=== PATIENT | male | born 1975 | race Caucasian/White ===

== ENCOUNTER 2024-02-14 08:10 | Day surgery (SDC) | payer OTHER, SELFPAY ==
[2024-02-14] VITALS (9 sets, daily range): BP systolic 109–132; BP diastolic 59–79; BMI 35.8
--- NOTE | 2024-02-14 07:24 | HP.FOC2 ---
Focused History & Physical
Chief Complaint
HPI:
Chief Complaint: Ventral hernia
HPI / Indication for Planned Procedure: Patient is a 48-year-old male who has been followed as an outpatient secondary to a history of swelling just above the umbilicus. Central area of swelling also present from epigastrium down to the umbilicus
consistent with diastasis. He presents today for scheduled operative correction of his symptomatic umbilical and supraumbilical ventral hernias.
Relevant Past Medical History: Other (History of lumbar disc herniation, gout)
Relevant Social History: Negative
Relevant Family History: Negative
Relevant Past Surgical History: Positive for (Right thigh ptosis repair, wisdom teeth extraction, right SI joint abscess drainage, appendectomy, dental implant, right biceps repair, laminectomy, L3/L4 microdiscectomy)
Review of Systems
Review of Pertinent Systems: All Systems Negative
Medication
See Medication form for detailed medications: Yes
Medication List (including Herbals & OTC):
allopurinol 300 mg tablet 300 mg PO HS 02/09/24
Medications Reviewed: Yes
Allergies and Reactions
Patient has Allergies: Yes
Noted Allergies and Reactions:
Allergy/AdvReac Type Severity Reaction Status Date / Time
amoxicillin Allergy Hives Verified 02/09/24 11:32
Penicillins Allergy Hives Verified 02/09/24 11:32
raw fruit Allergy tears Uncoded 02/09/24 11:40
Pertinent Physical Exam
All Other Systems: Negative
Head/Neck: Normal
Lungs: Normal
Heart: Normal
Abdomen: Other (Diastasis of recti measuring about 3 cm in width. Soft, reducible supraumbilical ventral hernia and umbilical hernias)
Extremities: Normal
Neurological: Normal
Diagnosis / Assessment
48-year-old male presenting for scheduled operative correction supraumbilical ventral hernia/umbilical hernia
Plan / Procedure
Robotic assisted laparoscopic repair of ventral/umbilical hernias with mesh
Anesthesia/Sedation to be done by Anesthesia Provider: Yes
[2024-02-14] MEDS: NORMOSOL-R 1000 IV (08:45)
[2024-02-14] MEDS: TYLENOL 1000 MG PO (08:55)
--- NOTE | 2024-02-14 10:46 | W.SUR.PREOP ---
Pre-Operative Surgical Note
-
I have examined this patient prior to the performance of the scheduled procedure.
The patient's condition is unchanged from the time of the current History and
Physical and the patient is able to undergo the scheduled procedure.
--- NOTE | 2024-02-14 12:55 | W.IMMPOSTOP ---
Addendum entered and electronically signed by Andrea Orlando MD 02/14/24 14:32:
The assistance of Rosi Hernandez PA-c was required due to the complexity of the procedure. During the procedure Rosi Hernandez PA-c assisted with trocar placement, robotic instrument and suture material exchanges, and closure of the incision sites. I
was present throughout the entirety of the operative procedure.
#[id number]
Original Note:
Surgical Immed Post Op Note
-
Primary Surgeon: Darion
Assisting Surgeon: Rosi Hernandez PA-c
Pre-op Diagnosis: Ventral hernia/umbilical hernia
Post-op Diagnosis: ventral hernia/umbilical hernia; 3cm total length
Procedure Performed: RAL KENJI VH/UH repair with mesh; soft mesh 15cm x 11cm
Anesthesia Type: GETA + 0.25% Marcaine
Specimen / Cultures: none
Estimated Blood Loss: 6mL
Complications: none immediate
Operative Findings: VH 2x1cm; UH 1x1cm; total length spans 3cm. kenji repair. bard soft mesh 15cm vertically x 11cm wide. closure of defect with #1PDS Stratafix. mesh secured with multiple interrupted 2-0 Vicryl
.
[2024-02-14] MEDS: DILAUDID 0.25 MG IV ×2 (13:05→13:20)
== END 2024-02-14 14:49 | disposition home or self-care (01) ==
LOC: SDS 08:10
PROVIDERS: ATTENDING PHYSICIAN Surgery; FAMILY PHYSICIAN Physician Assistant Medical
DX: K43.9 Ventral hernia without obstruction or gangrene (principal); K42.9 Umbilical hernia without obstruction or gangrene
CPT/HCPCS: 49591; 87070; C1781

== ENCOUNTER 2024-02-28 21:20 | Emergency (ER) | payer OTHER, SELFPAY ==
[2024-02-28 21:56] LABS: % Basophils 0.6 % (0-2); % Eosinophils 1.9 % (0-6); % Immature Granulocytes 0.3 % (0-0.5); % Lymphocytes 40.2 % (20.5-51.1); % Monocytes 6.8 % (1.7-9.3); % Neutrophils 50.2 % (42.2-75.2); Absolute Basophils 0.1 10^3/uL (0-0.2); Absolute Eosinophils 0.2 10^3/uL (0-0.7); Absolute Lymphocytes 3.8 10^3/uL (1.2-3.4); Absolute Monocytes 0.6 10^3/uL (0.1-0.6); Absolute Neutrophils 4.8 10^3/uL (1.4-6.5); Hematocrit 41.2 % (39.0-52.0); Hemoglobin 14.4 g/dL (13.0-18.0); Mean Corpuscular Hgb 29.4 pg (27.0-31.0); Mean Corpuscular Volume 84.1 fL (80.0-94.0); Mean Platelet Volume 10.4 fL (7.4-10.4); Nucleated Red Blood Cells % 0 % (-); Platelet Count 256 10^3/uL (130-400); Red Cell Dist. Width 12.6 % (11.5-14.5); White Blood Cell Count 9.5 10^3/uL (4.8-10.8)
[2024-02-28 22:06] LABS: ALT (SGPT) 37 U/L (0-50); AST (SGOT) 32 U/L (17-59); Albumin 4.9 g/dl (3.5-5.0); Alkaline Phosphatase 76 U/L (38-126); Blood Urea Nitrogen 21 mg/dl (9-20); Calcium 10.2 mg/dl (8.4-10.2); Carbon Dioxide 21 mmol/L (22-30); Chloride 104 mmol/L (98-107); Glucose 106 mg/dl (70-99); Sodium 138 mmol/L (135-145); Total Bilirubin 0.6 mg/dl (0.2-1.3); Total Protein 7.3 g/dl (6.3-8.2); eGFR > 60.00
--- NOTE | 2024-02-28 22:12 | ED.GENMED ---
History of Present Illness
General
Chief Complaint: Flank Pain
Source: patient
Exam Limitations: none
Time Seen by Provider: 02/28/24 21:53
History of Present Illness
History of Present Illness:
This is a 48 year old male that comes in with c/o right sided flank pain. States that this started about 8pm. States that the pain has been constant. State that he is nauseated, has a headache and dizziness. Denies any fever, chills, chest pain,
SOB, vomiting, diarrhea, urinary burning.
Past History
Past History
ED Past Medical History: Other (Sleep apnea)
ED Past Surgical History: Appendectomy, Orthopedic (Right Bicep shoulder surgery, Hemilaminectomy) and Other (Hernia repair, Eye surgery, abscess SI joint right sided. )
Social History
Tobacco: Non-smoker
Alcohol: None
Personal:
Living: with family
Review of Systems
Review of Systems
All Other Systems: ROS reviewed and negative except as documented in HPI and ROS
Constitutional: Reports no symptoms; Denies fever or chills
EENT: Reports no symptoms
Respiratory: Reports no symptoms; Denies cough or trouble breathing
Cardiac: Reports no symptoms; Denies chest pain
ABD/GI: Reports abdominal pain and nausea; Denies vomiting or diarrhea
: Reports flank pain (Right sided)
Musculoskeletal: Reports no symptoms
Skin: Reports no symptoms
Neurological: Reports dizzy and headache
Psychiatric: Reports no symptoms
Phy Exam
General Physical Exam
General Presentation: moderate distress
General age: appears stated age
General Skin: warm and dry
General Habitus: normal
General Mental: alert
General Hydration: dry mucous membranes
ENT Exam
ENT Exam: TM's normal, pharynx normal and neck supple
Eye Exam
Eye Exam: EOMI
Cardiovascular Exam
Cardiovascular Exam: regular rate/rhythm, no edema, no murmur and normal peripheral pulses
Pulmonary Exam
Pulmonary Exam: lungs clear, no respiratory distress, no rales, chest non tender, no crackles, no rhonchi, no wheezing and no cough
Gastrointestinal Exam
Gastrointestinal Exam: normal bowel sounds, non tender, soft, no organomegaly, no pulsatile mass, non distended and cva tenderness (Slight)
Musculoskeletal Exam
Musculoskeletal Exam: full ROM and no edema
Skin Exam
Skin Exam: normal color, warm/dry, no rash and no petechia
Psychiatric Exam
Psychiatric Exam: anxious
Course
Orders/Labs/Results
Orders:
Orders
02/28/24 21:48
Complete Blood Count/With Diff Urgent
Comprehensive Metabolic Panel Urgent
02/28/24 22:10
0.9% Sodium Chloride 1000 ml [Nss] 1,000 ml IV BOLUS
HYDROmorphone [Dilaudid] 1 mg IV NOW STA
Ondansetron Injectable [Zofran] 4 mg IV NOW STA
02/28/24 22:11
CT Abd/pel Without Iv Or Oral Urgent
Comment:
Reason For Exam: Right flank and abd pain
02/29/24 00:10
Tamsulosin [Flomax] 0.4 mg PO NOW STA
02/29/24 00:22
Urinalysis Reflex To Culture Urgent
Date Specimen was Collected: 02/29/24
Time Specimen was Collected: 00:22
Urine Microscopic Reflex Cult Urgent
Abnormal Lab Results
02/28/24 02/29/24
21:48 00:22
Absolute Lymphs (auto) 3.8 H 10^3/uL
(1.2-3.4)
Carbon Dioxide 21 L mmol/L
(22-30)
BUN 21 H mg/dl
(9-20)
Glucose 106 H mg/dl
(70-99)
Urine Ketones 3+ A
(Negative)
Ur Occult Blood Reflex 4+ A
(Negative)
02/28/24 21:48
02/28/24 21:48
Slight Dehydration. Glucose nonfasting. , Urine negative for infection.
Vital Signs
Initial and Last Documented VS:
Initial Vital Signs
Temp Pulse Resp Pulse Ox
98.0 F 79 18 100
02/28/24 21:23 02/28/24 21:23 02/28/24 21:23 02/28/24 21:23
Last Documented Vital Signs
Temp Pulse Resp BP Pulse Ox
98.0 F 79 18 145/70 95
02/28/24 21:23 02/28/24 21:23 02/28/24 21:23 02/29/24 00:00 02/29/24 00:00
MDM/Problems Addressed
Differential Diagnosis Includes:
Renal calculus,
MDM/Problems Addressed:
This is a 48 year old male that comes in with c/o right flank/abd pain. States that this started around 8pm tonight. States that he is nauseated, has a headache and dizziness.
Will check labs. give IV fluids and get CT scan.
Back into see patient. Explained that he has a 3mm stone in the distal ureter that is just at the bladder. Encouraged patient to increase his water intake to 8-8oz glasses daily. Will check urine for any infection. Start patient on Flomax. Patient
to strain his urine. Follow up with the Urologist in the next 5-7 days. Return with any concerns.
Chronic conditions affecting care: Previous abdomnial surgery
Acute Exacerbation and/or Progression of Chronic Illness: Previous abdomnial surgery
*Radiology
Radiology exam reviewed: radiology read reviewed (CT night hawk- 3mm obstructing calculus in the right UVJ, projectng into the bladder, associated with mild right hydroureteronephrosis. Right sided perinephric stranding may be related to obstructive
uropathy, though correlation with UA is recommended to assess for superimposed infection. ) and other (CT cont- bilateral renal calculi also seen. Cholelithiasis. DJD. )
*Pulse Oximetry
Patient hypoxic: no
*EKG
Interpreted by ED Provider?: NA
Rate: EKG- N/A
*Traffic Survey Technician Interpretation
Rate: Traffic Survey Technician- N/A
*Critical Care Note
Total Time (30-74mins, 75-104mins- exclusive of procedures): Not Applicable
ED Attending Note
-
Portions of this chart may have been created with voice recognition software.� Occasional wrong word or��sound alike� substitutions may have occurred due to the inherent limitations of voice recognition software.
Discharge Plan
Departure
Patient Disposition: Home (Routine Discharge)
Date of Disposition: 02/29/24
Time of Disposition: 01:13
Patient with high blood pressure during this ER visit?: Yes
Condition: Good
Covid-19: Not Applicable
Discharge Problem:
Renal calculus, right
Instructions: Renal Colic (DC), How to Strain Your Urine, BLOOD PRESSURE
Prescriptions:
New
tamsulosin [Flomax] 0.4 mg capsule
0.4 mg PO HS Qty: 7 0RF
ondansetron 4 mg tablet,disintegrating
4 mg PO Q8H PRN (Reason: nausea and vomiting) Qty: 7 0RF
No Action
allopurinol 300 mg Tablet
300 mg PO HS
acetaminophen [Tylenol Extra Strength] 500 mg tablet
1,000 mg PO Q6HPRN PRN (Reason: mild pain) Qty: 1 0RF
ibuprofen 200 mg tablet
400 - 600 mg PO Q6HPRN PRN (Reason: moderate pain) Qty: 1 0RF
polyethylene glycol 3350 [Miralax] 17 gram/dose powder
4 g PO DAILY PRN (Reason: Constipation) Qty: 119 0RF
Rx Instructions:
start a laxative such as MIRALAX on day 2 after surgery if no bowel movement yet as long as no nausea/vomiting and passing gas
oxycodone 5 mg tablet
5 mg PO Q4HPRN PRN (Reason: breakthrough/severe pain) Qty: 10 0RF
Referrals:
Shahram Nicole PA-C [Family Provider] -
Osman Saucedo MD [Active] - Follow up in 5-7 days
Activity Restrictions/Additional Instructions:
As discussed, you have a 3mm stone that is almost to the bladder. Please increase your water intake to 8-8oz glasses daily. Please strain your urine. You have had 2 prescriptions sent to your Pharmacy. The first is Flomax which you will take at
bedtime. This helps to relax the smooth muscle so you can pass the stone. The second is Zofran to help with any nausea. You may use the narcotic you have at home for pain. For lesser pain you can use Tylenol 1000mg every 6 hour for pain and
alternate with Ibuprofen 600mg every 6 hours with food. Follow up with the Urologist in the next 5-7 days for recheck. IF YOU HAVE FEVER, INCREASED OR CHANGING PAIN, OR YOU HAVE ANY OTHER CONCERNS PLEASE RETURN TO THE EMERGENCY ROOM.
Interventions
Interventions:
*Risk Screen - Suicide Last Done: 02/28/24 21:23
*General Assessment Last Done: 02/28/24 21:23
*Neglect/Abuse Screening Last Done: 02/28/24 21:23
*ED COVID-19 Vaccine History Last Done: 02/28/24 21:23
ZU-Nrvixi-Bmnqzgxmar Assessment Last Done: 02/28/24 22:03
ED-Male Genitourinary Assessment Last Done: 02/28/24 22:03
Discharge Date and Time
Print Language: [id number]
[2024-02-28] MEDS: NSS 1000 IV (22:14)
[2024-02-28] MEDS: DILAUDID 1 MG IV (22:16)
[2024-02-28] MEDS: ZOFRAN 4 MG IV (22:16)
[2024-02-28 23:00] VITALS: BP 132/70
[2024-02-28 23:40] VITALS: BP 130/76
[2024-02-29] VITALS: BP 145/70
[2024-02-29] MEDS: FLOMAX 0.4 MG PO (00:18)
[2024-02-29 01:02] LABS: Urine Albumin Negative (Neg - Trace); Urine Bilirubin Negative (Negative); Urine Character Clear (Clear); Urine Color Yellow; Urine Glucose Negative (Negative); Urine Ketone 3+ (Negative); Urine Leukocyte Negative (Negative); Urine Nitrite Negative (Negative); Urine Occult Blood 4+ (Negative); Urine Specific Gravity 1.025 (<1.030); Urine Urobilinogen Negative (Neg - 1+)
[2024-02-29 01:22] LABS: Urine Bacteria Few (Negative); Urine Mucus Many; Urine Red Blood Cell >100 /HPF (0-2); Urine Squamous Cell >30 /LPF (Few); Urine White Cell 0-2 /HPF (0-5)
== END 2024-02-29 01:23 | disposition home or self-care (01) ==
LOC: EMR 21:20
PROVIDERS: Clinical Nurse Specialist Family Health; EMERGENCY PHYSICIAN Student in an Organized Health Care Education/Training Program; FAMILY PHYSICIAN Physician Assistant Medical
DX: N20.0 Calculus of kidney (principal); R10.9 Unspecified abdominal pain; G47.30 Sleep apnea, unspecified; Z90.49 Acquired absence of other specified parts of digestive tract
CPT/HCPCS: 99284; 96374; 96375; 96361; 74176; 80053; 81003; 81015; 85025